=== PATIENT | male | born 1970 | race Caucasian/White ===

== ENCOUNTER 2017-04-18 13:52 | Emergency (ER) | payer BC ==
[2017-04-18] MEDS ORDERED: Sodium Chloride 0.9% 10 ML Syringe FLUSH PRN (13:57)
[2017-04-18] MEDS ORDERED: Sodium Chloride 0.9% 1,000 ML IV ONE ×2 (14:15→15:30)
[2017-04-18 14:42] LABS: CHLORIDE,CL 106 mmol/L (98-107); SODIUM,NA 143 mmol/L (136-145)
--- NOTE | 2017-04-18 15:03 | EDM.PDOC ---
ED HPI GENERAL MEDICAL PROBLEM - General Chief Complaint: General Stated Complaint: right arm tingling/numb Time Seen by Provider: 04/18/17 14:04 Source of Information: Reports: Patient History Limitations: Reports: No Limitations - History of Present Illness INITIAL COMMENTS - FREE TEXT/NARRATIVE: Patient comes in with right arm/hand numbness and tingling that started this afternoon. Describes it as glove/stocking effect from mid-bicep on down. Had similar feeling several weeks ago but that resolved in approximately 5 minutes. Denies any specific trigger for sensation, such as lifting/physical exertion, arm or shoulder position. Changing arm position did not have impact on sensation once it started. Denies having any pain. This includes chest pain. Denies SOB/respiratory changes. ROS positive for having several loose stools two days ago. No other GI changes. S.O. says he has been a bit clammy the last few days. ROS otherwise overall unremarkable. History of prior GA and stent placement. At that time symptoms included left arm pain, chest pain, but no numbness. At time of presentation, numbness was improving per patient. 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 Says he tries to keep hydrated. - Related Data Allergies Allergy/AdvReac Type Severity Reaction Status Date / Time No Known Allergies Allergy Verified 04/18/17 15:07 Home Meds: Home Meds Aspirin [Halfprin] 81 mg PO DAILY 09/26/14 [History] Nitroglycerin [Nitrostat] 0.4 mg SL Q5M PRN #30 tab.sl 09/26/14 [Rx] Nadolol [Corgard] 20 mg PO DAILY 04/18/17 [History] Past Medical History Cardiovascular History: Reports: GA, Stents - Past Surgical History Cardiovascular Surgical History: Reports: Coronary Artery Stent Social & Family History - Tobacco Use Smoking Status *Q: Current Every Day Smoker Years of Tobacco use: 20 Packs/Tins Daily: 1 Used Tobacco, but Quit: Yes Month Tobacco Last Used: December Second Hand Smoke Exposure: No - Alcohol Use Days Per Week of Alcohol Use: 5 Number of Drinks Per Day: 4 Total Drinks Per Week: 20 - Recreational Drug Use Recreational Drug Use: No Drug Use in Last 12 Months: No Recreational Drug Type: Reports: Cocaine, Marijuana/Hashish Recreational Drug Use Frequency: Not Used In Over 6 Months ED ROS GENERAL - Review of Systems Review Of Systems: See Below Constitutional: Reports: Fatigue, Diaphoresis (Patient "sweatier" than normal the past few days per .), Other (S.O. thinks patient has been a bit "shaky" the last day or two). Denies: No Symptoms, Fever, Chills, Malaise, Weakness, Night Sweats (Patient "sweatier" than normal the past few days per S.O.), Decreased Appetite, Weight Loss, Weight Gain HEENT: Reports: No Symptoms Respiratory: Reports: No Symptoms. Denies: Shortness of Breath, Cough Cardiovascular: Reports: No Symptoms. Denies: Chest Pain, Edema, Palpitations Endocrine: Reports: Fatigue. Denies: Polydypsia, Polyuria GI/Abdominal: Reports: No Symptoms : Reports: No Symptoms Musculoskeletal: Reports: No Symptoms Skin: Reports: No Symptoms Neurological: Reports: Numbness, Paresthesia, Tingling. Denies: Confusion, Dizziness, Headache, Pre-Existing Deficit, Seizure, Syncope, Trouble Speaking, Difficulty Walking, Weakness, Change in Speech, Gait Disturbance Psychiatric: Reports: No Symptoms Hematologic/Lymphatic: Reports: No Symptoms ED EXAM, GENERAL - Physical Exam Exam: See Below Exam Limited By: No Limitations General Appearance: Alert, No Apparent Distress Eye Exam: Bilateral Eye: EOMI, PERRL Ears: Normal External Exam, Normal Canal, Hearing Grossly Normal, Normal TMs Nose: Normal Inspection. No: Nasal Swelling, Nasal Drainage Throat/Mouth: Normal Inspection, Normal Lips, Normal Voice, No Airway Compromise Head: Atraumatic, Normocephalic Neck: Normal Inspection, Supple, Non-Tender, Full Range of Motion. No: Carotid Bruit, Lymphadenopathy (L), Lymphadenopathy (R) Respiratory/Chest: No Respiratory Distress, Lungs Clear, Normal Breath Sounds, No Accessory Muscle Use, Chest Non-Tender Cardiovascular: Normal Peripheral Pulses, Regular Rate, Rhythm, No Edema, No Gallop, No JVD, No Murmur Peripheral Pulses: 2+: Radial (L), Radial (R) GI/Abdominal: Normal Bowel Sounds, Soft, Non-Tender, No Distention, No Abnormal Bruit (Male) Exam: Deferred Rectal (Males) Exam: Deferred Back Exam: Normal Inspection. No: CVA Tenderness (L), CVA Tenderness (R) Extremities: Normal Range of Motion, Non-Tender, No Pedal Edema, Other (equal strength bilaterally. Touch intact. ) Neurological: Alert, Oriented, CN II-XII Intact, Normal Cognition, Normal Gait, Normal Reflexes, No Motor/Sensory Deficits Psychiatric: Normal Affect, Normal Mood Skin Exam: Warm, Dry, Normal Color (dark sun bishop noted), No Rash. No: Cyanosis , Diaphoretic, Increased Warmth EKG INTERPRETATION EKG Date: 04/18/17 Time: 13:55 Rhythm: Other (Sinus Tach) Rate (Beats/Min): 108 Olin: Normal P-Wave: Present QRS: Normal ST-T: Normal QT: Normal Comparison: Other: (Overall no significant change noted other than rate.) Course - Vital Signs Last Recorded V/S: Last Vital Signs Temp 37.0 C 04/18/17 13:54 Pulse 100 04/18/17 16:55 Resp 18 04/18/17 16:55 BP 137/95 H 04/18/17 16:55 Pulse Ox 98 04/18/17 16:55 - Orders/Labs/Meds Orders: Active Orders 24 hr Category Date Time Status Cardiac Monitoring [RC] . DIRECTED Care 04/18/17 13:57 Active EKG Documentation Completion [RC] ASDIRECTED Care 04/18/17 13:55 Active EKG Documentation Completion [RC] ASDIRECTED Care 04/18/17 14:50 Ordered Cervical Spine 2V or 3V [CR] Stat Exams 04/18/17 14:06 Taken Chest 2V [CR] Stat Exams 04/18/17 14:04 Taken UA W/MICROSCOPIC [URIN] Stat Lab 04/18/17 14:49 Uncollected Sodium Chloride 0.9% [Saline Flush] Med 04/18/17 13:57 Active 10 ml FLUSH ASDIRECTED PRN Saline Lock Insert [OM.PC] Routine Oth 04/18/17 13:57 Ordered Medication Orders Sodium Chloride (Saline Flush) 10 ml FLUSH ASDIRECTED PRN PRN Reason: Keep Vein Open Labs: Laboratory Tests 04/18/17 04/18/17 04/18/17 Range/Units 14:00 14:00 14:00 WBC 7.7 (4.0-10.2) K/uL RBC 5.55 H (4.33-5.41) M/uL Hgb 18.5 H* (13.1-16.8) g/dL Hct 51.7 H (39.0-49.0) % MCV 93.2 (84.0-98.0) fL MCH 33.3 (28.2-33.3) pg MCHC 35.8 (31.7-36.0) g/dL RDW 14.9 H (11.2-14.1) % Plt Count 130 L D (150-350) K/uL Neut % (Auto) 80.0 (45.0-80.0) % Lymph % (Auto) 12.2 (10.0-50.0) % [place] % (Auto) 6.6 (2.0-14.0) % Eos % (Auto) 0.8 (0.0-5.0) % Baso % (Auto) 0.4 (0.0-2.0) % Neut # (Auto) 6.18 (1.40-7.00) K/uL Lymph # (Auto) 0.94 (0.50-3.50) K/uL [place] # (Auto) 0.51 (0.00-1.00) K/uL Eos # (Auto) 0.06 (0.00-0.50) K/uL Baso # (Auto) 0.03 (0.00-0.20) K/uL Sodium 143 (136-145) mmol/L Potassium 3.6 (3.5-5.1) mmol/L Chloride 106 (98-107) mmol/L Carbon Dioxide 26.4 (21.0-32.0) mmol/L BUN 5 L (7-18) mg/dL Creatinine 0.77 (0.51-1.17) mg/dL Est Cr Clr Drug Dosing TNP Estimated GFR (MDRD) > 60 mL/min Glucose 146 H (74-106) mg/dL Calcium 8.8 (8.5-10.1) mg/dL Total Bilirubin 1.0 (0.2-1.0) mg/dL AST 46 H (15-37) U/L ALT 52 (12-78) U/L Alkaline Phosphatase 88 (46-116) IU/L Creatine Kinase 163 (26-308) U/L Creatine Kinase Index 0.6 (0.0-2.5) % CK-MB (CK-2) 0.90 (0.00-3.60) ng/mL Troponin I 0.000 (0.000-0.056) ng/mL Total Protein 8.0 (6.4-8.2) g/dL Albumin 4.2 (3.4-5.0) g/dL Ethyl Alcohol 0.007 (0.000-0.080) g/dL Meds: Medications Generic Name Dose Route Start Last Admin Trade Name Freq PRN Reason Stop Dose Admin Sodium Chloride 10 ml 04/18/17 13:57 Saline Flush FLUSH ASDIRECTED PRN Keep Vein Open Discontinued Medications Generic Name Dose Route Start Last Admin Trade Name Freq PRN Reason Stop Dose Admin Sodium Chloride 1,000 mls @ 999 mls/hr 04/18/17 14:15 04/18/17 14:28 Normal Saline IV 04/18/17 15:15 999 mls/hr .BOLUS ONE Administration Sodium Chloride 1,000 mls @ 999 mls/hr 04/18/17 15:30 04/18/17 15:35 Normal Saline IV 04/18/17 16:30 999 mls/hr .BOLUS ONE Administration Potassium Chloride 20 meq 04/18/17 15:49 04/18/17 16:44 Klor-Con 10 PO 04/18/17 15:50 20 meq ONETIME ONE Administration - Radiology Interpretation Free Text/Narrative:: Chest film/neck film overall unremarkable. - Re-Assessments/Exams Free Text/Narrative Re-Assessment/Exam: 04/18/17 17:26 Suspected dehydration based on history, tachycardia, and elevated Hgb. Patient received 2 L NS. Marked improvement of tachycardia noted. Patient became and stayed complaint-free. Improved sense of energy prior to discharge. Repeat EKG showed sinus arrhythmia with rate of 87. No ST elevation noted. Troponin negative. Platelets slightly decreased. AST 46. Glucose mildly elevated. Patient did not void despite the IV fluid bolus. He wished to be discharged home after the second liter was infused. No UA sample obtained. Plan at this time is to let the patient go home. Dehydration symptoms as well as strategies to stay hydrated, especially while working outside in the heat, were discussed. With recent loose stools, cannot rule out viral component to today's complaints. Patient is to take it easy for the rest of today. He is to watch for any new/ additional symptoms and should follow up in the ER if there are problems, especially if chest pain or SOB develop. Departure - Departure Time of Disposition: 16:57 Disposition: Home, Self-Care 01 Condition: Good Clinical Impression: Dehydration, Thrombocytopenia - Discharge Information Instructions: Rehydration, Adult, Dehydration, Adult Referrals: PCP,None [Primary Care Provider] - Forms: ED Department Discharge Additional Instructions: Home, rest. Take breaks during work on hot days to get into cooled environment , drink WATER/vitamin water/electrolyte drinks and stay hydrated. At this time, your complaint appears to be heat and dehydration related. However if you have further problems/new symptoms return to ER. Your platelet count was a bit low today. Please get that rechecked with your primary provider some time in the next month. - My Orders Last 24 Hours: My Active Orders 04/18/17 13:55 EKG Documentation Completion [RC] ASDIRECTED 04/18/17 13:57 Cardiac Monitoring [RC] . DIRECTED Sodium Chloride 0.9% [Saline Flush] 10 ml FLUSH ASDIRECTED PRN Saline Lock Insert [OM.PC] Routine 04/18/17 14:04 Chest 2V [CR] Stat 04/18/17 14:06 Cervical Spine 2V or 3V [CR] Stat 04/18/17 14:49 UA W/MICROSCOPIC [URIN] Stat 04/18/17 14:50 EKG Documentation Completion [RC] ASDIRECTED - Assessment/Plan Last 24 Hours: My Active Orders 04/18/17 13:55 EKG Documentation Completion [RC] ASDIRECTED 04/18/17 13:57 Cardiac Monitoring [RC] . DIRECTED Sodium Chloride 0.9% [Saline Flush] 10 ml FLUSH ASDIRECTED PRN Saline Lock Insert [OM.PC] Routine 04/18/17 14:04 Chest 2V [CR] Stat 04/18/17 14:06 Cervical Spine 2V or 3V [CR] Stat 04/18/17 14:49 UA W/MICROSCOPIC [URIN] Stat 04/18/17 14:50 EKG Documentation Completion [RC] ASDIRECTED
[2017-04-18] MEDS ORDERED: Potassium Chloride 10 MEQ Tab.ER PO ONE (15:49)
[2017-04-18 16:56] VITALS: BP 137/95
== END 2017-04-18 17:10 | disposition home or self-care (01) ==
LOC: LL.ED 13:52
DX: E86.0 Dehydration (principal); D69.6 Thrombocytopenia, unspecified; I25.2 Old myocardial infarction; F17.210 Nicotine dependence, cigarettes, uncomplicated; Z79.82 Long term (current) use of aspirin; Z79.899 Other long term (current) drug therapy
CPT/HCPCS: 36415; 71020; 72040; 80053; 82550; 82553; 84484; 85025; 93005; 96360; 96361; 99284; A9270; G0480; J7030

== ENCOUNTER 2019-07-22 04:49 | Emergency (ER) | payer SELFPAY ==
[2019-07-22] MEDS ORDERED: Sodium Chloride 0.9% 1,000 ML IV ONE (05:13)
--- NOTE | 2019-07-22 05:23 | EDM.PDOC ---
ED HPI GENERAL MEDICAL PROBLEM - General Chief Complaint: General Stated Complaint: bloody stool/emesis Time Seen by Provider: 07/22/19 04:55 Source of Information: Reports: Patient, Family History Limitations: Reports: No Limitations - History of Present Illness INITIAL COMMENTS - FREE TEXT/NARRATIVE: Patient is a 49-year-old who says he started with hematemesis and melena a notice for stool about 1 PM then had a couple of coffee-ground emesis was brought in by secondary to bloody stools and emesis patient had drank for the last month has history of bowel obstruction and had surgery for for 5 years ago Onset: Today, Gradual Duration: Hour(s):, Getting Worse Location: Reports: Abdomen Quality: Reports: Ache Improves with: Reports: None Worsens with: Reports: None Context: Reports: Other (GI bleed) Associated Symptoms: Reports: No Other Symptoms 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, 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 - Related Data Allergies Allergy/AdvReac Type Severity Reaction Status Date / Time No Known Allergies Allergy Verified 07/22/19 04:50 Home Meds: Home Meds Aspirin [Halfprin] 81 mg PO DAILY 09/26/14 [History] Past Medical History Cardiovascular History: Reports: [place], Stents - Past Surgical History Cardiovascular Surgical History: Reports: Coronary Artery Stent ED ROS GENERAL - Review of Systems Review Of Systems: See Below Constitutional: Reports: No Symptoms HEENT: Reports: No Symptoms Respiratory: Reports: No Symptoms Cardiovascular: Reports: No Symptoms GI/Abdominal: Reports: Hematemesis, Melena, Vomiting : Reports: No Symptoms Musculoskeletal: Reports: No Symptoms Skin: Reports: No Symptoms Neurological: Reports: No Symptoms Psychiatric: Reports: No Symptoms Immunologic: Reports: No Symptoms ED EXAM, GENERAL - Physical Exam Exam: See Below Exam Limited By: No Limitations General Appearance: Alert, WD/WN, No Apparent Distress Eye Exam: Bilateral Eye: EOMI, PERRL, Other (Pupils dilated to 4 mm) Ears: Normal External Exam, Normal Canal, Hearing Grossly Normal, Normal TMs Ear Exam: Bilateral Ear: Auricle Normal, Canal Normal, TM normal Nose: Normal Inspection, Normal Mucosa, No Blood Throat/Mouth: Normal Inspection, Normal Lips, Normal Teeth, Normal Gums, Normal Oropharynx, Normal Voice, No Airway Compromise Head: Atraumatic, Normocephalic Neck: Normal Inspection, Supple, Non-Tender, Full Range of Motion Respiratory/Chest: No Respiratory Distress, Lungs Clear, Normal Breath Sounds, No Accessory Muscle Use, Chest Non-Tender Cardiovascular: Normal Peripheral Pulses, Regular Rate, Rhythm, No Edema, No Gallop, No JVD, No Murmur, No Rub GI/Abdominal: Normal Bowel Sounds, Soft, Non-Tender, No Organomegaly, No Distention, No Abnormal Bruit, No Mass (Male) Exam: Deferred Rectal (Males) Exam: Deferred Back Exam: Normal Inspection, Full Range of Motion, NT Extremities: Normal Inspection, Normal Range of Motion, Non-Tender, Normal Capillary Refill, No Pedal Edema Neurological: Alert, Oriented, CN II-XII Intact, Normal Cognition, Normal Gait, Normal Reflexes, No Motor/Sensory Deficits Psychiatric: Normal Affect, Normal Mood Course - Vital Signs Last Recorded V/S: Last Vital Signs Temp 98.6 F 07/22/19 04:59 Pulse 147 H 07/22/19 04:59 Resp 16 07/22/19 04:59 BP 107/82 07/22/19 04:59 Pulse Ox 98 07/22/19 04:59 - Orders/Labs/Meds Orders: Active Orders 24 hr Category Date Time Status CBC WITH AUTO DIFF [HEME] Stat Lab 07/22/19 05:11 Ordered CMP [COMPREHENSIVE METABOLIC PN,CMP] [CHEM] Stat Lab 07/22/19 05:11 Ordered INR,PT,PROTHROMBIN TIME [COAG] Stat Lab 07/22/19 05:12 Ordered Sodium Chloride 0.9% [Normal Saline] 1,000 ml Med 07/22/19 05:13 Active IV .BOLUS Sodium Chloride 0.9% [Saline Flush] Med 07/22/19 05:11 Active 10 ml FLUSH ASDIRECTED PRN Saline Lock Insert [OM.PC] Stat Oth 07/22/19 05:11 Ordered Medication Orders Sodium Chloride (Normal Saline) 1,000 mls @ 999 mls/hr IV .BOLUS ONE Stop: 07/22/19 06:13 Sodium Chloride (Saline Flush) 10 ml FLUSH ASDIRECTED PRN PRN Reason: Keep Vein Open Meds: Medications Generic Name Dose Route Start Last Admin Trade Name Freq PRN Reason Stop Dose Admin Sodium Chloride 1,000 mls @ 999 mls/hr 07/22/19 05:13 Normal Saline IV 07/22/19 06:13 .BOLUS ONE Sodium Chloride 10 ml 07/22/19 05:11 Saline Flush FLUSH ASDIRECTED PRN Keep Vein Open Departure - Departure Time of Disposition: 06:24 Disposition: Home, Self-Care 01 Condition: Serious Clinical Impression: Liver cirrhosis, alcoholic, GI bleed - Discharge Information *PRESCRIPTION DRUG MONITORING PROGRAM REVIEWED*: No *COPY OF PRESCRIPTION DRUG MONITORING REPORT IN PATIENT SUZY: No Referrals: Rica Hunt PA-C [Primary Care Provider] - Forms: ED Department Discharge Care Plan Goals: Patient will be transferred to [facility] IV started Protonix bolus and drip started Zofran IV given normal saline bolus given - My Orders Last 24 Hours: My Active Orders 07/22/19 05:11 CBC WITH AUTO DIFF [HEME] Stat CMP [COMPREHENSIVE METABOLIC PN,CMP] [CHEM] Stat Sodium Chloride 0.9% [Saline Flush] 10 ml FLUSH ASDIRECTED PRN Saline Lock Insert [OM.PC] Stat 07/22/19 05:12 INR,PT,PROTHROMBIN TIME [COAG] Stat 07/22/19 05:13 Sodium Chloride 0.9% [Normal Saline] 1,000 ml IV .BOLUS - Assessment/Plan Last 24 Hours: My Active Orders 07/22/19 05:11 CBC WITH AUTO DIFF [HEME] Stat CMP [COMPREHENSIVE METABOLIC PN,CMP] [CHEM] Stat Sodium Chloride 0.9% [Saline Flush] 10 ml FLUSH ASDIRECTED PRN Saline Lock Insert [OM.PC] Stat 07/22/19 05:12 INR,PT,PROTHROMBIN TIME [COAG] Stat 07/22/19 05:13 Sodium Chloride 0.9% [Normal Saline] 1,000 ml IV .BOLUS
[2019-07-22] MEDS: Sodium Chloride 0.9% 10 ML Syringe FLUSH PRN ×2 (05:29→05:51)
[2019-07-22] MEDS ORDERED: Pantoprazole 80 MG in Sodium Chloride 0.9% 100 ML IV ONE ×2 (05:33→07:30)
[2019-07-22] MEDS ORDERED: Ondansetron 4 MG/2 ML SDV IVPUSH ONE (05:38)
[2019-07-22 05:42] LABS: CHLORIDE,CL 105 mmol/L (98-107); SODIUM,NA 144 mmol/L (136-145)
[2019-07-22] MEDS ORDERED: Pantoprazole 80 MG in Sodium Chloride 0.9% 100 ML IV SCH ×2 (05:45→07:30)
[2019-07-22] MEDS ORDERED: Sodium Chloride 0.9% 1,000 ML IV SCH (07:45)
[2019-07-22] MEDS ORDERED: Promethazine 25 MG/ML SDV IM ONE (07:51)
[2019-07-22 08:40] VITALS: BP 124/73; PULSE 112
== END 2019-07-22 08:42 ==
LOC: LL.ED 04:49
DX: K70.30 Alcoholic cirrhosis of liver without ascites (principal); K92.2 Gastrointestinal hemorrhage, unspecified; I25.2 Old myocardial infarction; Z79.82 Long term (current) use of aspirin; Z95.5 Presence of coronary angioplasty implant and graft
CPT/HCPCS: 36415; 74018; 80053; 82272; 85025; 85610; 96361; 96365; 96366; 96372; 99285-25; C9113; J2405; J2550; J7030; J7050

== ENCOUNTER 2021-12-01 02:46 | Emergency (ER) | payer BC ==
[2021-12-01] MEDS: Famotidine 20 MG/2 ML SDV IVPUSH ONE (03:43)
[2021-12-01] MEDS: GI Cocktail Oral Solution 30 ML PO ONE (03:43)
[2021-12-01 03:55] LABS: ANION GAP 10.2 meq/L (7-15); CHLORIDE,CL 106 mmol/L (98-107); SODIUM,NA 144 mmol/L (136-145)
[2021-12-01 04:35] VITALS: BP 117/67; PULSE 84
== END 2021-12-01 04:30 | disposition home or self-care (01) ==
LOC: LL.ED 02:46
DX: R07.2 Precordial pain (principal); K21.9 Gastro-esophageal reflux disease without esophagitis; D69.6 Thrombocytopenia, unspecified; I25.2 Old myocardial infarction; Z79.899 Other long term (current) drug therapy; Z95.5 Presence of coronary angioplasty implant and graft; Z72.0 Tobacco use
CPT/HCPCS: 36415; 71046; 80053; 80307; 84484; 85025; 85379; 85610; 93010; 96374; 99284; 99285-25; A9270-GY; J3490

== ENCOUNTER 2022-02-10 23:32 | Emergency (ER) | payer BC, MEDICAID ==
[2022-02-11] MEDS: Aspirin 81 MG Tab.Chew ONE (00:01)
[2022-02-11] MEDS: Thiamine 100 MG in Sodium Chloride 0.9% 100 ML IV ONE (00:02)
[2022-02-11] MEDS: Sodium Chloride 0.9% 1,000 ML IV ONE (00:03)
[2022-02-11 00:23] LABS: CHLORIDE,CL 111 mmol/L (98-107); SODIUM,NA 148 mmol/L (136-145)
[2022-02-11 00:29] LABS: ANION GAP 11.9 meq/L (7-15)
[2022-02-11] MEDS: Potassium Bicarbonate/Cit Ac 20 MEQ Effervescent Tab PO ONE ×2 (00:44→02:07)
[2022-02-11] MEDS: Ondansetron 4 MG/2 ML SDV IVPUSH ONE (00:44)
[2022-02-11] MEDS: Iopamidol 755 Mg/ML 100 ML Bottle ONE (01:00)
[2022-02-11] MEDS: Pantoprazole 40 MG Vial IVPUSH ONE (02:07)
[2022-02-11] MEDS: Sodium Chloride 0.45% 1,000 ML IV SCH (02:07)
[2022-02-11] MEDS: GI Cocktail Oral Solution 30 ML PO ONE (02:08)
[2022-02-11 02:24] LABS: BARBITURATE SCREEN,URINE NEGATIVE (NEGATIVE); BENZODIAZEPINES SCREEN,URINE NEGATIVE (NEGATIVE); EDDP,URINE SCREEN NEGATIVE (NEGATIVE); TCA SCREEN,URINE NEGATIVE (NEGATIVE); THC SCREEN,URINE 50 NG/ML NEGATIVE (NEGATIVE)
[2022-02-11 02:26] LABS: BUPRENORPHINE SCREEN,URINE NEGATIVE (NEGATIVE)
[2022-02-11 06:33] VITALS: BP 104/65; PULSE 83
== END 2022-02-11 03:00 | disposition home or self-care (01) ==
LOC: LL.ED 23:32
DX: K70.31 Alcoholic cirrhosis of liver with ascites (principal); F10.20 Alcohol dependence, uncomplicated; I25.2 Old myocardial infarction; K21.9 Gastro-esophageal reflux disease without esophagitis; E86.0 Dehydration; D69.6 Thrombocytopenia, unspecified; E87.6 Hypokalemia; Z91.19 Patient's noncompliance with other medical treatment and regimen; Z79.899 Other long term (current) drug therapy; Z72.0 Tobacco use; Y90.2 Blood alcohol level of 40-59 mg/100 ml
CPT/HCPCS: 36415; 71045; 71275; 80053; 80305; 80307; 83605; 83735; 83880; 84484; 85025; 85379; 93005; 96365; 96375; 99285; A9270; J2405; J3411; J3490; J7030; Q9967; 93010; 99284

== ENCOUNTER 2022-03-23 01:11 | Emergency (ER) | payer MEDICAID ==
[2022-03-23 01:20] VITALS: BP 119/71; PULSE 87
[2022-03-23] MEDS ORDERED: Sodium Chloride 0.9% 1,000 ML IV ONE (01:28)
== END 2022-03-23 02:55 | disposition home or self-care (01) ==
LOC: LL.ED 01:11
DX: F10.10 Alcohol abuse, uncomplicated (principal); F17.210 Nicotine dependence, cigarettes, uncomplicated; I25.2 Old myocardial infarction; Z95.5 Presence of coronary angioplasty implant and graft
CPT/HCPCS: 71046; 99284; 99285-25; J7030

== ENCOUNTER 2022-04-06 01:17 | Emergency (ER) | payer MEDICAID ==
[2022-04-06 01:19] VITALS: BP 119/68; PULSE 86
[2022-04-06] MEDS ORDERED: Sodium Chloride 0.9% 1,000 ML IV SCH (01:30)
[2022-04-06 02:49] LABS: CHLORIDE,CL 110 mmol/L (98-107); SODIUM,NA 145 mmol/L (136-145)
[2022-04-06 02:50] LABS: ANION GAP 10.2 meq/L (7-15); ESTIMATED GFR 98 mL/min (>=60)
[2022-04-06] MEDS ORDERED: Potassium Chloride 10 MEQ Tab.ER PO ONE (02:59)
== END 2022-04-06 03:45 | disposition home or self-care (01) ==
LOC: LL.ED 01:17
DX: R06.02 Shortness of breath (principal); F10.10 Alcohol abuse, uncomplicated; F17.210 Nicotine dependence, cigarettes, uncomplicated; I25.2 Old myocardial infarction
CPT/HCPCS: 36415; 80053; 85025; 93005; 93010; 96360; 99284; 99285-25; A9270-GY; J7030